=== PATIENT | male | born 1995 | race Caucasian/White ===

== ENCOUNTER 2017-10-02 14:17 | Emergency (ER) | payer SELFPAY ==
[~2017-10-02] VITALS: Ht 185.4 cm; Wt 77.1 kg
[2017-10-02 14:55] VITALS: BP 131/67
[2017-10-02] MEDS ORDERED: CEPH500C PO (15:22)
[2017-10-02] MEDS ORDERED: SULF1TAB24 PO (15:22)
--- NOTE | 2017-10-02 15:23 | PHYS DOC ---
Past Medical History Past Medical History: No Pertinent History Past Surgical History: No Surgical History Alcohol Use: Occasionally Drug Use: None Adult General Chief Complaint Chief Complaint: ABSCESS HPI HPI Patient is a 22 year old male with a history of cellulitis presents the ED complaining of red area to right buttock 2 days. States he has had similar symptoms in the past. Describes the pain as sharp. Rates the pain as 6 out of 10. States antibiotics has improved the symptoms in the past. Denies fever, n/v , weakness, dizziness, chest pain, shortness of breath, rash or conjunctivitis. Review of Systems Review of Systems Constitutional: Denies fever or chills [] Eyes: Denies change in visual acuity, redness, or eye pain [] HENT: Denies nasal congestion or sore throat [] Respiratory: Denies cough or shortness of breath [] Cardiovascular: No additional information not addressed in HPI [] GI: Denies abdominal pain, nausea, vomiting, bloody stools or diarrhea [] Musculoskeletal: Denies back pain or joint pain [] Integument: Complains of red area to right buttock. Denies rash or skin lesions [] Neurologic: Denies headache, focal weakness or sensory changes [] All other systems were reviewed and found to be within normal limits, except as documented in this note. Physical Exam Physical Exam Constitutional: Well developed, well nourished, no acute distress, non-toxic appearance. [] HENT: Normocephalic, atraumatic Cardiovascular:Heart rate regular rhythm, no murmur [] Lungs & Thorax: Bilateral breath sounds clear to auscultation [] Skin: Warm, dry. 2 x 2 cm erythematous warm red area to right buttock consistent with cellulitis. No abscess or fluctuance. Back: No tenderness, no CVA tenderness. [] Extremities: No tenderness, no cyanosis, no clubbing, ROM intact, no edema. [] Neurologic: Alert and oriented X 3, normal motor function, normal sensory function, no focal deficits noted. [] Psychologic: Affect normal, judgement normal, mood normal. [] Current Patient Data Vital Signs Vital Signs Date Time Temp Pulse Resp B/P (MAP) Pulse Ox O2 Delivery O2 Flow Rate FiO2 10/02/17 14:55 98.6 76 16 131/67 (88) 97 Room Air 98.6 EKG EKG [] Radiology/Procedures Radiology/Procedures [] Course & Med Decision Making Course & Med Decision Making Pertinent Labs and Imaging studies reviewed. (See chart for details) []Will treat with bactrim and keflex outpatient. No abscess or fluctuance. Discussed symptomatic treatment outpatient. Discussed follow-up for reevaluation in 3 days. Provided contact information/education. Discussed reasons to return to the ED. Patient understands and agrees with plan. Dragon Disclaimer Dragon Disclaimer This electronic medical record was generated, in whole or in part, using a voice recognition dictation system. Departure Departure Impression: Primary Impression: Cellulitis Disposition: HOME, SELF-CARE Condition: STABLE Referrals: NO PCP (PCP) STERLING BELL MD Patient Instructions: Cellulitis Scripts Cephalexin (CEPHALEXIN) 500 Mg Capsule 1 CAP PO TID for 7 Days, #21 CAP Prov: DANIEL GARRETT 10/02/17 Sulfamethoxazole/Trimethoprim (BACTRIM DS TABLET) 1 Each Tablet 1 TAB PO BID for 10 Days, #20 TAB Prov: DANIEL GARRETT 10/02/17 DANIEL GARRETT Oct 02, 2017 15:23
== END 2017-10-02 15:46 | disposition home or self-care (01) ==
LOC: ER 14:17
DX: L03.317 Cellulitis of buttock (principal)
CPT/HCPCS: 99283